=== PATIENT | female | born 1955 | race Caucasian/White ===

== ENCOUNTER 2018-06-13 11:57 | Emergency (ER) | payer MEDICAID ==
[~2018-06-13] VITALS: Ht 160 cm; Wt 66.0 kg
[2018-06-13 12:52] LABS: CLARITY,URINE CLEAR (Clear); COLOR,URINE STRAW (Yellow); GLUCOSE, URINE NEGATIVE (Neg); KETONES,URINE NEGATIVE (Neg); LEUKOCYTE ESTERASE ,URINE SMALL (Neg); NITRITES, URINE NEGATIVE (Neg); OCCULT BLOOD,URINE MODERATE (Neg); PROTEIN,URINE NEGATIVE (Neg); UROBILINOGEN,URINE 0.2 E.U/dL (0.2-1.0)
[2018-06-13 12:56] LABS: UA COLLECTION TYPE CLN CATCH MIDSTREAM
[2018-06-13 13:04] LABS: BACTERIA,URINE FEW /HPF (Neg); MUCUS STRANDS NONE SEEN /LPF (Neg); RENAL CELLS, URINE FEW /HPF; SQUAMOUS EPITHELIAL CELL,UR FEW /LPF (FEW); WBC,URINE 0-4 /HPF (0-4)
[2018-06-13 13:18] LABS: BASOPHILS % (AUTO) 0.5 % (0-1); EOSINOPHILS # (AUTO) 0.3 X10'3 (0-0.9); EOSINOPHILS % (AUTO) 4.2 % (0-6); HEMATOCRIT 39.5 % (35.0-45.0); LYMPHOCYTES # (AUTO) 1.3 X10'3 (1.1-4.8); LYMPHOCYTES % (AUTO) 17.4 % (21-51); MEAN CORPUSCULAR HEMOGLOBIN 28.4 PG (27.0-31.0); MEAN CORPUSCULAR VOLUME 86.2 FL (78-98); MONOCYTES # (AUTO) 0.6 X10'3 (0-0.9); MONOCYTES % (AUTO) 7.5 % (2-12); NEUTROPHILS # (AUTO) 5.2 X10'3 (1.8-7.7); NEUTROPHILS % (AUTO) 70.4 % (42-75); PLATELET COUNT 384 X10'3 (140-440); RED BLOOD COUNT 4.59 X10'6 (4.20-5.60); RED CELL DISTRIBUTION WIDTH 13.6 % (11.5-14.5); WHITE BLOOD COUNT 7.4 X10'3 (4.5-11.0)
[2018-06-13 13:46] LABS: ALANINE AMINOTRANSFERASE 26 U/L (12-78); ALBUMIN 3.5 G/DL (3.4-5.0); ALBUMIN/GLOBULIN RATIO 0.8 (1.1-1.5); ALKALINE PHOSPHATASE 100 IU/L (46-116); ANION GAP 8 (8-16); ASPARTATE AMINO TRANSFERASE 14 U/L (10-37); BILIRUBIN,TOTAL 0.2 MG/DL (0.1-1.0); BLOOD UREA NITROGEN 15 MG/DL (7-18); BUN/CREATININE RATIO 16.9 (6.6-38.0); CHLORIDE 102 MMOL/L (99-107); CREATININE 0.89 MG/DL (0.40-0.90); GLUCOSE 106 MG/DL (70-104); MAGNESIUM 1.9 MG/DL (1.5-2.4); POTASSIUM 3.8 MMOL/L (3.5-5.1); SODIUM 140 MMOL/L (135-145); TOTAL CARBON DIOXIDE 30.3 MMOL/L (24-32); TOTAL PROTEIN 7.8 G/DL (6.4-8.2); eGFR 64 ML/MIN
[2018-06-13 14:31] VITALS: BP 128/77
== END 2018-06-13 14:31 | disposition home or self-care (01) ==
LOC: ER 11:57
DX: R42 Dizziness and giddiness (principal)
CPT/HCPCS: 36415; 70450; 71045; 80053; 81001; 82948; 83735; 83880; 84484; 85025; 87088; 93005; 99284

== ENCOUNTER 2020-06-12 09:35 | Day surgery (SDC) | payer MEDICAID ==
[~2020-06-12] VITALS: Ht 160 cm; Wt 64.0 kg
[2020-06-12] VITALS (8 sets, daily range): BP systolic 113–143; BP diastolic 51–79
[2020-06-12] MEDS ORDERED: diphenhydrAMINE 25mg capsule PO PRN (09:55)
[2020-06-12] MEDS ORDERED: LISI40TA4 PO (10:10)
[2020-06-12] MEDS ORDERED: ATOR40TA71 PO (10:10)
[2020-06-12] MEDS ORDERED: ATEN-27 PO (10:10)
[2020-06-12] MEDS ORDERED: FLUO20CA39 PO (10:10)
[2020-06-12] MEDS: normal saline 1,000 ML IV SCH ×2 (10:13→10:25)
[2020-06-12 10:19] LABS: BASOPHILS # (AUTO) 0.1 X10'3 (0-0.2); BASOPHILS % (AUTO) 0.9 % (0-1); EOSINOPHILS # (AUTO) 0.4 X10'3 (0-0.9); EOSINOPHILS % (AUTO) 4.9 % (0-6); HEMATOCRIT 36.3 % (35.0-45.0); HEMOGLOBIN 12.2 g/dl (12.0-16.0); LYMPHOCYTES # (AUTO) 2.5 X10'3 (1.1-4.8); LYMPHOCYTES % (AUTO) 27.2 % (21-51); MEAN CORPUSCULAR HEMOGLOBIN 30.2 PG (27.0-31.0); MEAN CORPUSCULAR HGB CONC 33.7 g/dL (33.0-36.5); MEAN CORPUSCULAR VOLUME 89.8 FL (78-98); MEAN PLATELET VOLUME 8.5 FL (7.4-10.4); MONOCYTES # (AUTO) 0.7 X10'3 (0-0.9); NEUTROPHILS # (AUTO) 5.4 X10'3 (1.8-7.7); PLATELET COUNT 311 X10'3 (140-440); RED BLOOD COUNT 4.04 X10'6 (4.20-5.60); RED CELL DISTRIBUTION WIDTH 13.3 % (11.5-14.5); WHITE BLOOD COUNT 9.2 X10'3 (4.5-11.0)
[2020-06-12 10:24] LABS: ALBUMIN 3.7 G/DL (3.4-5.0); ANION GAP 6 (8-16); BLOOD UREA NITROGEN 12 MG/DL (7-18); BUN/CREATININE RATIO 11.2 (6.6-38.0); CALCIUM 9.4 MG/DL (8.5-10.1); CHLORIDE 106 MMOL/L (99-107); CREATININE 1.07 MG/DL (0.40-0.90); GLUCOSE 85 MG/DL (70-104); MAGNESIUM 1.9 MG/DL (1.5-2.4); POTASSIUM 4.2 MMOL/L (3.5-5.1); SODIUM 141 MMOL/L (135-145); TOTAL CARBON DIOXIDE 29.4 MMOL/L (24-32); eGFR 52 ML/MIN
[2020-06-12] MEDS ORDERED: heparin 1,000unit/ml 10ml vial 10 ML ONE (11:06)
[2020-06-12] MEDS ORDERED: iohexol 350MG/ML 100ml bottle IV ONE (11:06)
[2020-06-12] MEDS ORDERED: fentaNYL/PF 50MCG/1 ML 2ML syringe ONE (11:06)
[2020-06-12] MEDS ORDERED: midazolam 2 mg/2 ml injection ONE ×2 (11:06→11:40)
[2020-06-12] MEDS ORDERED: LIDOcaine 1% (10mg/ml)w/preservative injection 20ml MDV ONE (11:06)
[2020-06-12] MEDS ORDERED: iohexol 350 MG/ML 50ML vial IV ONE ×2 (11:06→12:15)
[2020-06-12] MEDS ORDERED: nitroGLYCERIN-Tridil 50MG/D5W 250 ML IV ONE (12:11)
[2020-06-12] MEDS ORDERED: ticagrelor 90mg tablet ONE (12:35)
== END 2020-06-12 15:00 | disposition home or self-care (01) ==
LOC: SSTAY O 09:35
PROVIDERS: ATTEND Internal Medicine Cardiovascular Disease
DX: R94.39 Abnormal result of other cardiovascular function study (principal); I25.10 Atherosclerotic heart disease of native coronary artery without angina pectoris; I10 Essential (primary) hypertension; E78.5 Hyperlipidemia, unspecified; I70.218 Atherosclerosis of native arteries of extremities with intermittent claudication, other extremity; I77.1 Stricture of artery; I08.0 Rheumatic disorders of both mitral and aortic valves; Z85.828 Personal history of other malignant neoplasm of skin; Z79.01 Long term (current) use of anticoagulants; Z79.899 Other long term (current) drug therapy
CPT/HCPCS: 36415; 80048; 83735; 85025; 85610; 93005; 93458; 99152; 99153; C1760; C1769; C1894; J1644; J2001; J2250; J3010; J7030; Q0163; Q9967; A4620; A6258; J3490

== ENCOUNTER 2020-06-16 05:59 | Inpatient (IN) | payer MEDICAID ==
[~2020-06-16] VITALS: Ht 160 cm; Wt 59.7 kg
[~2020-06-16 05:59] MED LIST: ATEN-27 PO; ATOR40TA71 PO; FLUO20CA39 PO; LISI40TA4 PO
[2020-06-16] MEDS ORDERED: normal saline 1,000 ML IV SCH (06:15)
[2020-06-16] MEDS ORDERED: diphenhydrAMINE 25mg capsule PO PRN (06:15)
[2020-06-16] MEDS ORDERED: TICA90TA PO (06:20)
[2020-06-16] MEDS ORDERED: ATEN25TA PO (06:21)
[2020-06-16] MEDS ORDERED: ISOS30TA9 PO (06:21)
[2020-06-16] MEDS ORDERED: ASPI81TA52 PO (06:24)
[2020-06-16 07:27] LABS: BASOPHILS # (AUTO) 0.1 X10'3 (0-0.2); EOSINOPHILS # (AUTO) 0.4 X10'3 (0-0.9); EOSINOPHILS % (AUTO) 3.5 % (0-6); HEMATOCRIT 36.1 % (35.0-45.0); HEMOGLOBIN 12.1 g/dl (12.0-16.0); LYMPHOCYTES # (AUTO) 1.7 X10'3 (1.1-4.8); LYMPHOCYTES % (AUTO) 16.1 % (21-51); MEAN CORPUSCULAR HEMOGLOBIN 30.1 PG (27.0-31.0); MEAN CORPUSCULAR HGB CONC 33.6 g/dL (33.0-36.5); MEAN CORPUSCULAR VOLUME 89.7 FL (78-98); MEAN PLATELET VOLUME 8.4 FL (7.4-10.4); MONOCYTES # (AUTO) 0.7 X10'3 (0-0.9); MONOCYTES % (AUTO) 6.2 % (2-12); NEUTROPHILS # (AUTO) 7.8 X10'3 (1.8-7.7); NEUTROPHILS % (AUTO) 73.2 % (42-75); PLATELET COUNT 338 X10'3 (140-440); RED BLOOD COUNT 4.02 X10'6 (4.20-5.60); RED CELL DISTRIBUTION WIDTH 13.4 % (11.5-14.5); WHITE BLOOD COUNT 10.7 X10'3 (4.5-11.0)
[2020-06-16 07:38] LABS: ANION GAP 11 (8-16); BLOOD UREA NITROGEN 14 MG/DL (7-18); BUN/CREATININE RATIO 13.7 (6.6-38.0); CALCIUM 9.9 MG/DL (8.5-10.1); CHLORIDE 103 MMOL/L (99-107); CREATININE 1.02 MG/DL (0.40-0.90); GLUCOSE 97 MG/DL (70-104); MAGNESIUM 2.3 MG/DL (1.5-2.4); POTASSIUM 3.7 MMOL/L (3.5-5.1); SODIUM 140 MMOL/L (135-145); eGFR 55 ML/MIN
[2020-06-16] MEDS ORDERED: heparin 1,000unit/ml 10ml vial 10 ML ONE (07:40)
[2020-06-16] MEDS ORDERED: midazolam 2 mg/2 ml injection ONE ×5 (07:40→09:39)
[2020-06-16] MEDS ORDERED: iohexol 350 MG/1 ML 200ml bottle ONE (07:40)
[2020-06-16] MEDS ORDERED: fentaNYL/PF 50MCG/1 ML 2ML syringe ONE (07:40)
[2020-06-16] MEDS ORDERED: LIDOcaine 1% (10mg/ml)w/preservative injection 20ml MDV ONE (07:40)
[2020-06-16 07:44] VITALS: BP 74/45
[2020-06-16 07:46] VITALS: BP 118/52
[2020-06-16] MEDS ORDERED: dextrose 5% water 500ml 500 ML ONE (07:50)
[2020-06-16] MEDS ORDERED: MAGNESIUM SULFATE 4 MEQ/ML (5gm/10ml) injection ONE (08:00)
[2020-06-16] MEDS ORDERED: albumin (human) 25% 100 ML IV solution IV ONE (08:00)
[2020-06-16] MEDS ORDERED: heparin 10,000 units/1 ML INJ ONE (08:00)
[2020-06-16] MEDS ORDERED: calcium chloride 100 MG/1 ML inj IV ONE (08:00)
[2020-06-16] MEDS ORDERED: potassium Cl 2 mEq/ml inj IV ONE (08:00)
[2020-06-16] MEDS ORDERED: methylPREDNISolone sod succ 1000mg vial ONE (08:00)
[2020-06-16] MEDS ORDERED: epiNEPHrine 1 mg/ml 30ml MDV ONE (08:00)
[2020-06-16] MEDS ORDERED: PHENYLephrine 10mg/ml 5ml injection IV ONE (08:00)
[2020-06-16] MEDS ORDERED: papaverine 30 mg/ml 2ml inj. ONE (08:00)
[2020-06-16] MEDS ORDERED: sodium bicarbonate (8.4%) 1 mEq/ml syringe ONE (08:00)
[2020-06-16] MEDS ORDERED: heparin 1,000 units/ml 10ml inj ONE (08:00)
[2020-06-16] MEDS ORDERED: aminocaproic acid 250 MG/1 ML inj. ONE (08:00)
[2020-06-16] MEDS ORDERED: LIDOcaine 2% (20 mg/ml) 5ml cardiac syringe ONE (08:00)
[2020-06-16] MEDS ORDERED: DOPamine 400mg/D5W 250ml 250 ML IV ONE (08:50)
[2020-06-16] MEDS ORDERED: phenylephrine 10mg/ml inj. ONE (09:01)
[2020-06-16] MEDS ORDERED: ondansetron/PF 4mg/2ml inj ONE (09:25)
[2020-06-16] MEDS ORDERED: succinylcholine 20mg/ml inj IV ONE (09:39)
[2020-06-16] MEDS ORDERED: midazolam 100mg in NS 100ml 100 ML IV ONE (09:47)
[2020-06-16] MEDS ORDERED: FENTANYL-0.9 % NACL/PF 100 ML ONE (09:47)
[2020-06-16] MEDS ORDERED: atropine 0.1mg/ml 10ml syringe ONE (09:53)
[2020-06-16] MEDS ORDERED: FENTANYL 1000MCG/NS 100 ML BAG /PF IV PRN (09:55)
[2020-06-16] MEDS ORDERED: midazolam 100mg in NS 100 ML INFUSION IV PRN (09:55)
[2020-06-16 10:05] LABS: ABG HCO3 16.3 mmol/L (22.0-26.0); ABG OXYGEN SATURATION 99.3 % (94-97); ABG PCO2 (T) 33.1 mmHg (32.0-45.0); ABG PO2 (T) 339.2 mmHg (75.0-100.0); FCOHb 0.3 % (0.0-3.9); FLOW 15 L/min; FMetHb 0.1 % (0.0-1.5); FO2Hb 98.9 % (94-97); TOTAL HEMOGLOBIN 10.7 G/dl (12.0-16.0)
[2020-06-16] MEDS ORDERED: rocuronium 10mg/ml inj IV ONE ×2 (10:09→10:11)
[2020-06-16] MEDS ORDERED: amiodarone in dextrose, iso-osm 150mg/100ml bag IV ONE (10:11)
[2020-06-16 10:50] LABS: ABG HCO3 16.1 mmol/L (22.0-26.0); ABG PCO2 39.8 mmHg (32.0-45.0); ABG PO2 460.3 mmHg (75.0-100.0); CL (ABG) 99 mmol/L (98-110); GLUCOSE (ABG) 174 mg/dl (70-140); IONIZED CA (ABG) 0.91 mmol/L (1.10-1.43); K (ABG) 4.3 mmol/L (3.5-5.0)
[2020-06-16 11:36] LABS: ABG BASE EXCESS -7.4 mmol/L (-2.0-2.0); ABG HCO3 18.2 mmol/L (22.0-26.0); ABG OXYGEN SATURATION 91.7 % (94-97); ABG PCO2 37.1 mmHg (32.0-45.0); ABG PO2 60.6 mmHg (75.0-100.0); CL (ABG) 102 mmol/L (98-110); FCOHb 0.7 % (0.0-3.9); FMetHb 0.3 % (0.0-1.5); FO2Hb 90.8 % (94-97); GLUCOSE (ABG) 179 mg/dl (70-140)
[2020-06-16 12:01] LABS: ABG BASE EXCESS -3.7 mmol/L (-2.0-2.0); ABG HCO3 19.6 mmol/L (22.0-26.0); ABG OXYGEN SATURATION 99.6 % (94-97); ABG PCO2 28.5 mmHg (32.0-45.0); ABG PO2 351.8 mmHg (75.0-100.0); CL (ABG) 103 mmol/L (98-110); FCOHb 0.9 % (0.0-3.9); FMetHb 0.3 % (0.0-1.5); FO2Hb 98.4 % (94-97); GLUCOSE (ABG) 157 mg/dl (70-140); IONIZED CA (ABG) 0.94 mmol/L (1.10-1.43); K (ABG) 5.9 mmol/L (3.5-5.0); TOTAL HEMOGLOBIN 7.5 G/dl (12.0-16.0)
[2020-06-16 12:35] LABS: ABG BASE EXCESS 2.4 mmol/L (-2.0-2.0); ABG HCO3 25.7 mmol/L (22.0-26.0); ABG OXYGEN SATURATION 99.4 % (94-97); ABG PCO2 34.1 mmHg (32.0-45.0); CL (ABG) 101 mmol/L (98-110); FCOHb 0.3 % (0.0-3.9); FMetHb 0.3 % (0.0-1.5); FO2Hb 98.8 % (94-97); GLUCOSE (ABG) 183 mg/dl (70-140); TOTAL HEMOGLOBIN 8.3 G/dl (12.0-16.0)
[2020-06-16] MEDS ORDERED: Insulin Reg/NS 100units/100mL 100 ML IV SCH (12:40)
[2020-06-16 13:25] LABS: ABG BASE EXCESS -2.8 mmol/L (-2.0-2.0); ABG HCO3 21.6 mmol/L (22.0-26.0); ABG OXYGEN SATURATION 99.5 % (94-97); ABG PCO2 34.6 mmHg (32.0-45.0); ABG PO2 551.3 mmHg (75.0-100.0); CL (ABG) 102 mmol/L (98-110); FCOHb 1.2 % (0.0-3.9); FMetHb 0.3 % (0.0-1.5); GLUCOSE (ABG) 119 mg/dl (70-140); K (ABG) 5.4 mmol/L (3.5-5.0)
[2020-06-16 13:46] LABS: ABG BASE EXCESS -15.6 mmol/L (-2.0-2.0); ABG HCO3 11.1 mmol/L (22.0-26.0); ABG OXYGEN SATURATION 99.8 % (94-97); ABG PCO2 29.5 mmHg (32.0-45.0); ABG PO2 518.1 mmHg (75.0-100.0); CL (ABG) 104 mmol/L (98-110); FCOHb 1.3 % (0.0-3.9); FMetHb 0.2 % (0.0-1.5); FO2Hb 98.3 % (94-97); GLUCOSE (ABG) 91 mg/dl (70-140); IONIZED CA (ABG) 0.91 mmol/L (1.10-1.43); K (ABG) 5.3 mmol/L (3.5-5.0)
[2020-06-19 12:44] LABS: TOTAL HEMOGLOBIN < 4.7 G/dl (12.0-16.0)
[2020-06-19 12:45] LABS: K (ABG) 6.1 mmol/L (3.5-5.0)
[2020-06-19 12:46] LABS: IONIZED CA (ABG) 0.74 mmol/L (1.10-1.43)
[2020-06-19 12:47] LABS: IONIZED CA (ABG) 0.66 mmol/L (1.10-1.43); K (ABG) 6.6 mmol/L (3.5-5.0)
[2020-06-19 12:48] LABS: TOTAL HEMOGLOBIN 5.9 G/dl (12.0-16.0)
[2020-06-19 12:49] LABS: IONIZED CA (ABG) 0.61 mmol/L (1.10-1.43)
[2020-06-19 12:50] LABS: TOTAL HEMOGLOBIN 5.7 G/dl (12.0-16.0)
== END 2020-06-16 18:16 | disposition expired | DRG 165 ==
LOC: SSTAY O 05:59 → PAS IN 09:28 → PACU 18:15 → SSTAY O 18:16
PROVIDERS: ADMIT Thoracic Surgery (Cardiothoracic Vascular Surgery); ATTEND Internal Medicine Cardiovascular Disease
PROC: 06BP4ZZ Excision of Right Saphenous Vein, Percutaneous Endoscopic Approach (ICD-10-PCS; 2020-06-16)
PROC: 027236Z Dilation of Coronary Artery, Three Arteries with Three Drug-eluting Intraluminal Devices, Percutaneous Approach (ICD-10-PCS; 2020-06-16)
PROC: 5A0221D Assistance with Cardiac Output using Impeller Pump, Continuous (ICD-10-PCS; 2020-06-16)
PROC: 5A12012 Performance of Cardiac Output, Single, Manual (ICD-10-PCS; 2020-06-16)
PROC: 02PA3RZ Removal of Short-term External Heart Assist System from Heart, Percutaneous Approach (ICD-10-PCS; principal; 2020-06-16 10:11)
PROC: 0212093 Bypass Coronary Artery, Three Arteries from Coronary Artery with Autologous Venous Tissue, Open Approach (ICD-10-PCS; 2020-06-16 10:11)
DX: I21.4 Non-ST elevation (NSTEMI) myocardial infarction (principal); I25.10 Atherosclerotic heart disease of native coronary artery without angina pectoris; I46.9 Cardiac arrest, cause unspecified; Z79.899 Other long term (current) drug therapy; Z79.82 Long term (current) use of aspirin; I31.2 Hemopericardium, not elsewhere classified; I31.4 Cardiac tamponade; F15.11 Other stimulant abuse, in remission; R07.9 Chest pain, unspecified; J44.9 Chronic obstructive pulmonary disease, unspecified; I12.9 Hypertensive chronic kidney disease with stage 1 through stage 4 chronic kidney disease, or unspecified chronic kidney disease; N18.9 Chronic kidney disease, unspecified; Z72.0 Tobacco use; Z86.73 Personal history of transient ischemic attack (TIA), and cerebral infarction without residual deficits; I97.51 Accidental puncture and laceration of a circulatory system organ or structure during a circulatory system procedure
CPT/HCPCS: 33990; 36415; 36430; 36600; 76937; 80048; 82330; 82435; 82803; 82947; 83735; 84132; 84295; 85018; 85025; 85347; 86885; 86900; 86901; 86920; 92950; 93005; 93312; 94760; 94799; 99152; 99153; A4618; A4620; A6258; A6402; A6449; A7000; A7048; C1725; C1751; C1760; C1769; C1874; C1894; C9250; C9600; J0171; J0330; J0461; J1265; J1644; J2001; J2150; J2250; J2370; J2405; J2440; J2930; J3010; J3480; J3490; J7030; J7040; J7050; J7060; J7120; P9016; P9047; P9059; Q0163; Q9967